=== PATIENT | female | born 1995 | race African-American/Black ===

== ENCOUNTER 2021-03-08 11:53 | Emergency (ER) | payer MEDICAID ==
[~2021-03-08] VITALS: Ht 182.9 cm; Wt 55.0 kg
[2021-03-08 15:11] LABS: CLARITY URINE CLEAR (CLEAR); COLOR URINE YELLOW (YELLOW); KETONES URINE TRACE (NEGATIVE); LEUKOCYTE ESTERASE URINE NEGATIVE (NEGATIVE); NITRITE URINE NEGATIVE (NEGATIVE); OCCULT BLOOD URINE NEGATIVE (NEGATIVE); PH URINE 5.5 (4.5-8.0); PROTEIN URINE 2+ (NEGATIVE); SPECIFIC GRAVITY URINE 1.027 (1.005-1.030); UROBILINOGEN URINE 0.2 E.U./dL (0.2-1.0)
[2021-03-08 15:12] LABS: UCG SCREEN POSITIVE
[2021-03-08] MEDS ORDERED: ACETAMINOPHEN 325MG TABLET PO NR (15:15)
[2021-03-08] MEDS ORDERED: ONDANSETRON 4MG ODT PO NR (15:15)
[2021-03-08 15:55] VITALS: BP 107/69
[2021-03-08] MEDS ORDERED: SODIUM CHLORIDE 0.9% 1,000 ML IV ONE (16:00)
[2021-03-08] MEDS ORDERED: FAMOTIDINE 20MG/2ML VIAL IV NR (16:00)
== END 2021-03-08 17:51 | disposition left against medical advice (07) ==
LOC: ER 13:57
DX: O23.31 Infections of other parts of urinary tract in pregnancy, first trimester (principal); O26.891 Other specified pregnancy related conditions, first trimester; Z3A.01 Less than 8 weeks gestation of pregnancy; N39.0 Urinary tract infection, site not specified
CPT/HCPCS: 81003; 81025; 99283; J3490; Q0162

== ENCOUNTER 2021-06-23 15:38 | Observation (INO) | payer MEDICAID ==
[~2021-06-23] VITALS: Ht 182.9 cm; Wt 56.2 kg
[2021-06-23] MEDS ORDERED: PREN-118 PO (16:33)
[2021-06-23] MEDS ORDERED: ONDA4TAB5 PO (16:34)
[2021-06-23] MEDS ORDERED: LACTATED RINGERS 1,000 ML IV SCH (16:45)
[2021-06-23 17:11] LABS: BASOPHILS % 0.3 % (0.0-2.0); EOSINOPHILS % 0.6 % (0.0-5.0); HEMATOCRIT. 27.3 % (36.0-48.0); HEMOGLOBIN. 9.3 g/dL (12.0-16.0); LYMPHOCYTES % 22.7 % (20.0-50.0); MEAN CORPUSCULAR HEMOGLOBIN 28.4 pg (28.0-32.0); MEAN PLATELET VOLUME 9.1 fl (7.4-10.4); MONOCYTES % 7.4 % (2.0-8.0); PLATELET 213 x1000/uL (130-400); RED BLOOD CELL COUNT 3.29 mill/uL (4.2-5.4); RED CELL DISTRIBUTION WIDTH 14.4 % (11.6-14.6)
[2021-06-23 17:19] LABS: CLARITY URINE CLOUDY (CLEAR); COLOR URINE YELLOW (YELLOW); KETONES URINE NEGATIVE (NEGATIVE); LEUKOCYTE ESTERASE URINE TRACE (NEGATIVE); NITRITE URINE NEGATIVE (NEGATIVE); OCCULT BLOOD URINE NEGATIVE (NEGATIVE); PROTEIN URINE NEGATIVE (NEGATIVE); SPECIFIC GRAVITY URINE 1.021 (1.005-1.030); UROBILINOGEN URINE 0.2 E.U./dL (0.2-1.0)
[2021-06-23] MEDS ORDERED: ACETAMINOPHEN 500MG TABLET PO NR (18:15)
[2021-06-23] MEDS ORDERED: CEFAZOLIN 2,000 MG in DEXT 5% WATER 100 ML IV NR (20:30)
== END 2021-06-23 21:35 | disposition home or self-care (01) ==
LOC: 8EST NSY 15:38 → 8 EST A/PP 15:49
PROVIDERS: ADMIT Obstetrics & Gynecology; ATTEND Obstetrics & Gynecology
DX: O26.892 Other specified pregnancy related conditions, second trimester (principal); R10.9 Unspecified abdominal pain; O99.891 Other specified diseases and conditions complicating pregnancy; M54.9 Dorsalgia, unspecified; Z3A.20 20 weeks gestation of pregnancy
CPT/HCPCS: 36415; 59025; 76805; 81003; 85025; 96361; 96365; G0378; J0690; J7060; 96360; 99281; J7120

== ENCOUNTER 2021-07-08 21:01 | Observation (INO) | payer MEDICAID ==
[~2021-07-08] VITALS: Ht 182.9 cm; Wt 60.8 kg
[~2021-07-08 21:01] MED LIST: ONDA4TAB5 PO; PREN-118 PO
[2021-07-08 23:57] LABS: CLARITY URINE CLOUDY (CLEAR); COLOR URINE YELLOW (YELLOW); KETONES URINE NEGATIVE (NEGATIVE); LEUKOCYTE ESTERASE URINE 3+ (NEGATIVE); NITRITE URINE NEGATIVE (NEGATIVE); OCCULT BLOOD URINE NEGATIVE (NEGATIVE); PROTEIN URINE NEGATIVE (NEGATIVE); SPECIFIC GRAVITY URINE 1.014 (1.005-1.030); UROBILINOGEN URINE 0.2 E.U./dL (0.2-1.0)
[2021-07-09] MEDS ORDERED: POTASSIUM CHLORIDE 20MEQ TABLET SR PO NR ×2 (00:45)
== END 2021-07-09 01:00 | disposition home or self-care (01) ==
LOC: 8EST NSY 21:01 → 8 EST LDRP 21:43
PROVIDERS: ADMIT Obstetrics & Gynecology; ATTEND Obstetrics & Gynecology
DX: O26.892 Other specified pregnancy related conditions, second trimester (principal); R10.9 Unspecified abdominal pain; Z3A.22 22 weeks gestation of pregnancy
CPT/HCPCS: 36415; 80051; 81003; 99281; G0378; 59025